=== PATIENT | female | born 1995 | race Caucasian/White ===

== ENCOUNTER 2017-03-12 16:22 | Emergency (ER) | payer OTHER ==
[2017-03-12 17:02] LABS: Bilirubin Negative (Negative); Blood, Urine Large (Negative); Glucose, Urine (Dipstick) Negative (Negative); Ketone, Urine Negative (Negative); Nitrite Negative (Negative); Protein, Urine (Dipstick) Trace mg/dL (Neg-Trace)
[2017-03-12 17:05] LABS: #Basophils 0.1 thou/uL (0.0-0.2); #Eosinphils 0.3 thou/uL (0.0-0.7); #Lymphocytes 2.8 thou/uL (1.20-3.40); #Monocytes 0.5 thou/uL (0.11-0.59); #Neutrophils 5.9 thou/uL (1.40-6.50); %Basophils 0.6 % (0.0-1.0); %Eosinophils 3.4 % (0.0-10.0); %Lymphocytes 29.4 % (21.0-51.0); %Monocytes 5.6 % (0.0-10.0); Hematocrit 42.8 % (36.0-47.0); Mean Platelet Volume 8.6 fL (7.4-10.4); Red Blood Cell (RBC) Count 4.84 mill/uL (4.20-5.40); White Blood Cell (WBC) Count 9.6 thou/uL (4.8-10.8)
[2017-03-12 17:06] LABS: Bacteria/HPF None Seen HPF (None Seen); Hyaline Casts/LPF 0-3 HYALINE CAST LPF (0-3 Hyaline); RBC/HPF GREATER THAN 50-TNTC HPF (0-3); Squamous Epithelial 0-3 HPF (0-3)
[2017-03-12] MEDS ORDERED: Ketorolac Tromethamine 30 MG/ML VIAL ONE (17:17)
[2017-03-12] MEDS ORDERED: Ondansetron HCl/PF 4 MG/2 ML Vial ONE (17:17)
[2017-03-12 17:23] LABS: ALT (SGPT) 13 U/L (8-55); AST (SGOT) 13 U/L (5-34); Alkaline Phosphatase 59 U/L (40-150); Anion Gap 13 mmol/L (10-20); BUN (Urea Nitrogen) 13 mg/dL (7.0-18.7); Bilirubin, Total 0.5 mg/dL (0.2-1.2); Calc. Creatinine Clearance 0 mL/min (70-130); Calcium 8.8 mg/dL (7.8-10.44); Carbon Dioxide 23 mmol/L (22-29); Chloride 109 mmol/L (98-107); Estimated GFR-MDRD Greater than 90; Globulin 3.4 g/dL (2.4-3.5); Protein, Total 7.4 g/dL (6.0-8.3)
[2017-03-12] MEDS ORDERED: Morphine 4 MG/ML VIAL ONE (18:13)
--- NOTE | 2017-03-12 18:42 | CT ---
CT ABDOMEN AND PELVIS NONCONTRAST 03/12/17 HISTORY: Right flank pain. COMPARISON: 10/28/14 FINDINGS: The right renal collecting system and ureter are mildly distended to the level of a 0.4 cm calculus in the mid right ureter at the L5 level. The right ureter beyond this point is decompressed. The lef t renal collecting system, ureter, and urinary bladder are incompletely distended without stone evid ent. Phleboliths are noted within the retroperitoneum. Lack of contrast limits evaluation for other abnormalities. Small hiatal hernia is apparent. IMPRESSION: Partial obstruction at 5 mm mid right ureteral calculus. POS: [facility]
[2017-03-12] MEDS ORDERED: HYDROcodone/Acetaminophen 5/325 mg Tablet ONE (20:33)
== END 2017-03-12 21:33 | disposition home or self-care (01) ==
LOC: ERS 16:22
DX: N13.9 Obstructive and reflux uropathy, unspecified (principal); F17.210 Nicotine dependence, cigarettes, uncomplicated
CPT/HCPCS: 74176; 80053; 81003; 81015; 81025; 85025; 96374; 96375; J1885; J2270; J2405

== ENCOUNTER 2017-05-13 13:55 | Emergency (ER) | payer OTHER | END 2017-05-13 15:05 | disposition home or self-care (01) | LOC: ERS 13:55 | DX: J11.1 Influenza due to unidentified influenza virus with other respiratory manifestations (principal); E66.9 Obesity, unspecified; F17.200 Nicotine dependence, unspecified, uncomplicated | CPT/HCPCS: 99283 ==

== ENCOUNTER 2017-11-12 10:11 | Emergency (ER) | payer OTHER | END 2017-11-12 11:16 | disposition home or self-care (01) | LOC: ERS 10:11 | DX: J20.9 Acute bronchitis, unspecified (principal); E66.9 Obesity, unspecified; F17.200 Nicotine dependence, unspecified, uncomplicated | CPT/HCPCS: 99283 ==

== ENCOUNTER 2018-03-02 03:49 | Emergency (ER) | payer OTHER ==
[2018-03-02 04:56] LABS: #Eosinphils 0.2 thou/uL (0.0-0.7); #Lymphocytes 2.2 thou/uL (1.20-3.40); #Monocytes 0.7 thou/uL (0.11-0.59); #Neutrophils 8.2 thou/uL (1.40-6.50); %Basophils 0.4 % (0.0-1.0); %Eosinophils 1.9 % (0.0-10.0); %Neutrophils 72.7 % (42.0-75.0); Hemoglobin 13.1 g/dL (12.0-16.0); Mean Corpuscular HGB CONC 33.1 g/dL (32.0-36.0); Mean Corpuscular Hemoglobin 28.7 pg (27.0-31.0); Mean Corpuscular Volume 86.7 fL (78.0-98.0); Mean Platelet Volume 8.5 fL (7.4-10.4); Platelet Count 210 thou/uL (130-400); RBC Distribution Width 12.5 % (11.5-14.5); Red Blood Cell (RBC) Count 4.58 mill/uL (4.20-5.40); White Blood Cell (WBC) Count 11.3 thou/uL (4.8-10.8)
[2018-03-02] MEDS ORDERED: Lidocaine 1% w/Epinephrine 1:100K 20 ML VIAL ONE (04:56)
[2018-03-02] MEDS ORDERED: Lidocaine Viscous Sol 2% 15 ml UD Cup ONE (04:56)
[2018-03-02] MEDS ORDERED: Bupivacaine 0.5% 10 ML VIAL ONE (04:56)
[2018-03-02 05:02] LABS: BHCG - Serum Negative (NEGATIVE); Pregs Control Background? CLEAR/WHITE (CLR/WHITE); Pregs Control Bar Appear? YES (CONTROL BAR)
[2018-03-02 05:11] LABS: ALT (SGPT) 19 U/L (8-55); AST (SGOT) 16 U/L (5-34); Alkaline Phosphatase 58 U/L (40-150); Anion Gap 11 mmol/L (10-20); BUN (Urea Nitrogen) 12 mg/dL (7.0-18.7); Bilirubin, Total 0.8 mg/dL (0.2-1.2); Calc. Creatinine Clearance 0 mL/min (70-130); Calcium 9.1 mg/dL (7.8-10.44); Carbon Dioxide 24 mmol/L (22-29); Chloride 107 mmol/L (98-107); Estimated GFR-MDRD Greater than 90; Glucose 108 mg/dL (70-105); Potassium 3.9 mmol/L (3.5-5.1); Sodium 138 mmol/L (136-145)
[2018-03-02] MEDS ORDERED: Clindamycin/D5W 600 mg/50 ml Premix Bag ONE (05:21)
--- NOTE | 2018-03-02 08:24 | CT ---
FINAL REPORT CT OF NECK PERFORMED WITH INTRAVNEOUS CONTRAST ENHANCEMENT: HISTORY: Right-sided facial swelling. FINDINGS: The visualized brain parenchyma is unremarkable. The parotid and submandibular glands are normal in appearance. There is mildly prominent but bilater ally symmetric jugular chain adenopathy. In a patient of this age, these are most likely reactive in nature. The tonsillar region appears unremarkable and parapharyngeal spaces are clear. There is swelling along the right side of the face main in the region of the right side of the mandib le. There is underlying dental disease in this region which is felt to be the underlying cause for t he facial changes. IMPRESSION: 1. Right-sided facial cellulitis with underlying dental disease of the mandible region. This is in the region of the 2nd molar. 2. Reactive lymph nodes. 3. This report is in agreement with the temporary report issued by [facility]. POS: [facility]
== END 2018-03-02 08:25 | disposition home or self-care (01) ==
LOC: ERS 03:49
DX: K04.7 Periapical abscess without sinus (principal); F17.210 Nicotine dependence, cigarettes, uncomplicated
CPT/HCPCS: 36415; 41800; 70491; 80053; 84703; 85025; 96365; J2001; J3490

== ENCOUNTER 2018-10-03 09:14 | Emergency (ER) | payer OTHER ==
--- NOTE | 2018-10-03 09:41 | RAD ---
EXAM: Chest PA and lateral: HISTORY: Cough. Congestion x1 week. COMPARISON: 10/17/2012 FINDINGS: Heart: Normal cardiac silhouette Aorta: Unremarkable Pulmonary vessels: Normal Costophrenic angles: Costophrenic angles are clear. Lungs: No consolidation or masses. Pneumothorax: No pneumothorax Osseous structures: No osseous abnormalities IMPRESSION: No acute cardiopulmonary process.
== END 2018-10-03 10:48 | disposition home or self-care (01) ==
LOC: ERS 09:14
DX: R05 Cough (principal); R09.81 Nasal congestion; F17.210 Nicotine dependence, cigarettes, uncomplicated
CPT/HCPCS: 71046